=== PATIENT | male | born 1985 | race Asian ===

== ENCOUNTER 2020-12-20 22:40 | Emergency (ER) | payer BC ==
[~2020-12-20] VITALS: Ht 182.9 cm; Wt 69.9 kg
[2020-12-20 23:00] VITALS: Ht 182.9 cm; Wt 69.9 kg
[2020-12-21 01:03] VITALS: BP 129/88
== END 2020-12-21 01:09 | disposition home or self-care (01) ==
LOC: ED 22:40
DX: R04.2 Hemoptysis (principal); J02.9 Acute pharyngitis, unspecified